=== PATIENT | female | born 1970 | race Two or more races ===

== ENCOUNTER → 2017-03-27 | Outpatient (CLI) | payer OTHER | LOC: CIMAGING 11:33 | PROVIDERS: ATTEND Family Medicine | DX: S49.91XA Unspecified injury of right shoulder and upper arm, initial encounter (principal) | CPT/HCPCS: 73000-PO; 73030-PO ==

== ENCOUNTER → 2018-01-03 | Outpatient (CLI) | payer OTHER | LOC: FIMAGING 09:15 | PROVIDERS: ATTEND Family Medicine | DX: R10.13 Epigastric pain (principal); R10.10 Upper abdominal pain, unspecified ==

== ENCOUNTER → 2018-01-06 | Outpatient (CLI) | payer OTHER | LOC: CIMAGING 12:18 | PROVIDERS: ATTEND Physician Assistant Medical | DX: N92.0 Excessive and frequent menstruation with regular cycle (principal); R14.0 Abdominal distension (gaseous); R10.32 Left lower quadrant pain | CPT/HCPCS: 76856-PO ==

== ENCOUNTER → 2018-09-12 | Outpatient (CLI) | payer OTHER | LOC: CIMAGING 10:43 | PROVIDERS: ATTEND Family Medicine | DX: Z12.31 Encounter for screening mammogram for malignant neoplasm of breast (principal); Z80.3 Family history of malignant neoplasm of breast ==

== ENCOUNTER → 2018-09-17 | Outpatient (CLI) | payer OTHER | LOC: CIMAGING 08:47 | PROVIDERS: ATTEND Family Medicine | DX: R94.5 Abnormal results of liver function studies (principal); E66.01 Morbid (severe) obesity due to excess calories | CPT/HCPCS: 76705-PO ==